=== PATIENT | male | born 1945 | race Caucasian/White ===

== ENCOUNTER 2016-12-11 09:10 | Emergency (ER) | payer MEDICARE ==
[2016-12-11 09:46] LABS: #Eosinphils 0.2 thou/uL (0.0-0.7); #Lymphocytes 1.3 thou/uL (1.20-3.40); #Monocytes 0.6 thou/uL (0.11-0.59); %Basophils 0.6 % (0.0-1.0); %Eosinophils 2.2 % (0.0-10.0); %Lymphocytes 16.1 % (21.0-51.0); %Monocytes 7.3 % (0.0-10.0); %Neutrophils 73.8 % (42.0-75.0); Hemoglobin 15.2 g/dL (14.0-18.0); Mean Corpuscular HGB CONC 34.7 g/dL (32.0-36.0); Mean Corpuscular Hemoglobin 32.6 pg (27.0-31.0); Mean Corpuscular Volume 93.9 fl (80.0-94.0); Mean Platelet Volume 8.9 fL (7.4-10.4); Platelet Count 159 thou/uL (130-400); RBC Distribution Width 11.7 % (11.5-14.5); Red Blood Cell (RBC) Count 4.68 mill/uL (4.70-6.10); White Blood Cell (WBC) Count 8.1 thou/uL (4.8-10.8)
[2016-12-11 09:59] LABS: Anion Gap 11 mmol/L (10-20); BUN (Urea Nitrogen) 11 mg/dL (8.4-25.7); Calc. Creatinine Clearance 0 mL/min (70-130); Calcium 9.1 mg/dL (7.8-10.44); Carbon Dioxide 26 mmol/L (23-31); Chloride 107 mmol/L (98-107); Estimated GFR-MDRD 78; Glucose 162 mg/dL (83-110); Potassium 4.1 mmol/L (3.5-5.1); Sodium 140 mmol/L (136-145); Uric Acid 6.8 mg/dL (3.5-7.2)
--- NOTE | 2016-12-11 10:15 | RAD ---
RIGHT FOOT THREE VIEWS: History: 71-year-old male with right foot pain following an injury. FINDINGS: Arterial vascular calcifications are noted. 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 Minimal soft tissue fullness over the anterior aspect of the f orefoot. IMPRESSION: Marked vascular calcifications. Minimal forefoot soft tissue swelling. Arthrosis and degenerative ch anges. No acute fracture, dislocation, or other significant acute osseous abnormality. POS: [facility]
[2016-12-11] MEDS ORDERED: Amoxicillin/Potassium Clav 875 MG TAB ONE (10:27)
== END 2016-12-11 10:35 | disposition home or self-care (01) ==
LOC: BURERS 09:10
DX: L03.115 Cellulitis of right lower limb (principal); I25.10 Atherosclerotic heart disease of native coronary artery without angina pectoris; E11.9 Type 2 diabetes mellitus without complications
CPT/HCPCS: 36415; 80048; 84550; 85025